=== PATIENT | male | born 1980 | race Two or more races ===

== ENCOUNTER → 2019-01-22 | Outpatient (CLI) | payer BC ==
[2019-01-22 16:56] LABS: ABSOLUTE EOSINOPHILS # (AUTO) 0.1 10^3/uL (0.0-0.6); ABSOLUTE LYMPHOCYTES (AUTO) 2.1 10^3/uL (0.5-4.7); ABSOLUTE MONOCYTES (AUTO) 0.6 10^3/uL (0.1-1.4); ABSOLUTE NEUT (AUTO) 4.8 10^3/uL (1.7-8.2); BASOPHILS % (AUTO) 0.5 % (0-2); EOSINOPHILS % (AUTO) 0.9 % (0-6); HEMATOCRIT 49.6 % (37.9-51.0); HEMOGLOBIN 17.3 g/dL (13.5-17.0); MEAN CORPUSCULAR HEMOGLOBIN 29.6 pg (27.0-33.4); MEAN CORPUSCULAR VOLUME 85 fl (80-97); MONOCYTES % (AUTO) 7.6 % (3-13); PLATELET COUNT 295 10^3/uL (150-450); RED BLOOD COUNT 5.85 10^6/uL (4.35-5.55); TOTAL CELLS COUNTED % (AUTO) 100 %; WHITE BLOOD COUNT 7.6 10^3/uL (4.0-10.5)
[2019-01-22 17:17] LABS: ANION GAP 13 (5-19); BLOOD UREA NITROGEN 14 mg/dL (7-20); CALCIUM 10.1 mg/dL (8.4-10.2); CARBON DIOXIDE 28 mmol/L (22-30); CHLORIDE 98 mmol/L (98-107); GLUCOSE 87 mg/dL (75-110); POTASSIUM 4.1 mmol/L (3.6-5.0); SODIUM 138.6 mmol/L (137-145)
== END ==
LOC: OD 16:19
PROVIDERS: ATTEND Internal Medicine
DX: D64.9 Anemia, unspecified (principal); N19 Unspecified kidney failure; R07.9 Chest pain, unspecified
CPT/HCPCS: 36415; 80048; 84484; 85025

== ENCOUNTER → 2019-02-09 | Outpatient (CLI) | payer BC | LOC: OD 12:11 | PROVIDERS: ATTEND Internal Medicine | DX: E03.9 Hypothyroidism, unspecified (principal); E11.9 Type 2 diabetes mellitus without complications; E29.1 Testicular hypofunction | CPT/HCPCS: 36415; 83036; 84403; 84443 ==

== ENCOUNTER 2019-06-08 12:15 | Day surgery (SDC) | payer BC, OTHER ==
[2019-06-01 09:50] LABS: ABSOLUTE EOSINOPHILS # (AUTO) 0.1 10^3/uL (0.0-0.6); ABSOLUTE LYMPHOCYTES (AUTO) 1.7 10^3/uL (0.5-4.7); ABSOLUTE MONOCYTES (AUTO) 0.4 10^3/uL (0.1-1.4); ABSOLUTE NEUT (AUTO) 3.5 10^3/uL (1.7-8.2); BASOPHILS % (AUTO) 0.5 % (0-2); HEMATOCRIT 45.6 % (37.9-51.0); HEMOGLOBIN 15.7 g/dL (13.5-17.0); LYMPHOCYTES % (AUTO) 29.1 % (13-45); MEAN CORPUSCULAR HEMOGLOBIN 29.3 pg (27.0-33.4); MEAN CORPUSCULAR HGB CONC 34.3 g/dL (32.0-36.0); MEAN CORPUSCULAR VOLUME 85 fl (80-97); MONOCYTES % (AUTO) 7.4 % (3-13); PLATELET COUNT 245 10^3/uL (150-450); RED BLOOD COUNT 5.35 10^6/uL (4.35-5.55); TOTAL CELLS COUNTED % (AUTO) 100 %; WHITE BLOOD COUNT 5.8 10^3/uL (4.0-10.5)
[2019-06-01 10:16] LABS: ANION GAP 12 (5-19); BLOOD UREA NITROGEN 13 mg/dL (7-20); CALCIUM 9.4 mg/dL (8.4-10.2); CARBON DIOXIDE 26 mmol/L (22-30); CHLORIDE 104 mmol/L (98-107); GLUCOSE 90 mg/dL (75-110); POTASSIUM 4.7 mmol/L (3.6-5.0)
--- NOTE | 2019-06-01 10:21 | EKG REPORT ---
SEVERITY:- NORMAL ECG - SINUS RHYTHM : Confirmed by: Teddy Cowart MD 01-Jun-2019 10:21:12
--- NOTE | 2019-06-01 12:11 | RADIOLOGY REPORT (SQ) ---
EXAM DESCRIPTION: CHEST PA/LATERAL COMPLETED DATE/TIME: 06/01/2019 9:34 am REASON FOR STUDY: PRE-OP COMPARISON: 09/19/2014 EXAM PARAMETERS: NUMBER OF VIEWS: two views TECHNIQUE: Digital Frontal and Lateral radiographic views of the chest acquired. RADIATION DOSE: NA LIMITATIONS: none FINDINGS: LUNGS AND PLEURA: No opacities, masses or pneumothorax. No pleural effusion. MEDIASTINUM AND HILAR STRUCTURES: No masses or contour abnormalities. HEART AND VASCULAR STRUCTURES: Heart normal size. No evidence for failure. BONES: No acute findings. HARDWARE: None in the chest. OTHER: No other significant finding. IMPRESSION: NO SIGNIFICANT RADIOGRAPHIC FINDING IN THE CHEST. TECHNICAL DOCUMENTATION: JOB ID: [id number] [employer]- All Rights Reserved Reading location - IP/workstation name: [email or web address]
[~2019-06-08 12:15] MED LIST: CLINDAMYCIN 600 MG/D5W RTU 600 MG/50 ML RTUPB IV PRN; LACTATED RINGERS 1000 ML IV PRN; LIDOCAINE 0.5% INJ-PF (5 MG/ML) 50 ML SDV SUBCUT PRN
[2019-06-08] MEDS ORDERED: CLINDAMYCIN 600 MG/D5W RTU 600 MG/50 ML RTUPB IV ONE (12:36)
[2019-06-08] MEDS ORDERED: BUPIVACAINE HCL 0.5 % INJ/PF 30 ML SDV ONE (14:13)
[2019-06-08] MEDS ORDERED: LIDOCAINE 1%/EPINEPHRINE INJ 20 ML VIAL ONE ×2 (14:14→16:14)
[2019-06-08 14:15] LABS: APPEARANCE,URINE CLEAR; BILIRUBIN,URINE NEGATIVE (NEGATIVE); COLOR,URINE YELLOW; GLUCOSE, URINE NEGATIVE (NEGATIVE); KETONES,URINE NEGATIVE (NEGATIVE); LEUKOCYTE ESTERASE,URINE NEGATIVE (NEGATIVE); NITRITE,URINE NEGATIVE (NEGATIVE); PROTEIN,URINE NEGATIVE (NEGATIVE); URINE SPECIFIC GRAVITY 1.014; UROBILINOGEN,URINE NEGATIVE mg/dL (<2.0)
[2019-06-08] MEDS ORDERED: MEPERIDINE HCL/PF INJ 25 MG/1 ML DISP.SYRIN IV PRN (15:31)
[2019-06-08] MEDS ORDERED: MORPHINE SULFATE 10 MG/ML INJ IV PRN (15:31)
[2019-06-08] MEDS ORDERED: DIPHENHYDRAMINE HCL 50 MG/ML VIAL IV PRN (15:31)
[2019-06-08] MEDS ORDERED: FENTANYL CITRATE INJ/PF 100 MCG/2 ML AMPUL IV PRN ×3 (15:31)
[2019-06-08] MEDS ORDERED: PROMETHAZINE HCL INJ 25 MG/1 ML VIAL IV PRN ×2 (15:31)
[2019-06-08] MEDS ORDERED: FENTANYL CITRATE INJ/PF 100 MCG/2 ML AMPUL ONE (15:36)
[2019-06-08] MEDS ORDERED: PROPOFOL INJ 200 MG/20 ML VIAL IV ONE (15:37)
[2019-06-08] MEDS ORDERED: ONDANSETRON HCL INJ/PF 4 MG/2 ML SDV ONE (15:37)
[2019-06-08] MEDS ORDERED: MIDAZOLAM 2 MG/2 ML INJ ONE (15:37)
[2019-06-08] MEDS ORDERED: DEXAMETHASONE SOD PHOSPHATE INJ 4 MG/1 ML VIAL ONE (15:37)
[2019-06-08] MEDS ORDERED: LIDOCAINE 0.5% INJ-PF (5 MG/ML) 50 ML SDV ONE (15:40)
[2019-06-08] MEDS ORDERED: KETAMINE HCL INJ 500 MG/10 ML VIAL ONE (15:56)
[2019-06-08] MEDS ORDERED: LIDOCAINE 1% INJ-PF (10 MG/ML) 30 ML SDV ONE (16:14)
--- NOTE | 2019-06-08 16:28 | Operative Report ---
Operative Report DATE OF SURGERY: 06/08/19 PREOPERATIVE DIAGNOSIS: Right medial meniscal tear POSTOPERATIVE DIAGNOSIS: Right medial meniscal tear. 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 Intact ACL. Loose body in the intercondylar notch. Lateral meniscal tear OPERATION: Arthroscopic right partial medial and lateral meniscectomy, retrieval of loose body SURGEON: FÁTIMA BOJORQUEZ ANESTHESIA: LMAC TISSUE REMOVED OR ALTERED: Loose body to pathology ESTIMATED BLOOD LOSS: Minimal PROCEDURE: With the patient supine on the operating room table the right lower extremities prepped and draped in sterile fashion. The knee is insufflated with accommodation Marcaine, Xylocaine, and epinephrine through medial and lateral infrapatellar portals. Portals are created for the introduction of arthroscope and debridements mentation. Joint is examined in systematic fashion. Findings as above. The loose bodies removed using a grabber and then the soft tissue bed at the base of the ACL is smooth using mechanical shaver. A partial lateral meniscectomy was performed from proximally 6:00 to 10:00 on the face of the dial using combination of basket Lowe, mechanical shaver, electric frequency ablation probe. Similarly a partial medial meniscectomy was performed from proximally 4:00 to 12:00 on the face of the dial using a rondure, mechanical shaver, and electric frequency ablation probe. The joint is examined again examined in systematic fashion with no new findings. Instrumentation was removed. Portals reapproximated interrupted nylon. A sterile compressive dressing was applied. The patient return to PACU in satisfactory condition.
--- NOTE | 2019-06-08 16:30 | Discharge Summary ---
Discharge Summary (SDC) - Discharge Final Diagnosis: Right medial meniscal tear Date of Surgery: 06/08/19 Discharge Date: 06/08/19 Condition: Good Treatment or Instructions: Remove compressive wrap on Saturday. Underlying OpSite can remain in place until you return to the office. Once the compressive wrap is removed you may shower but do not immerse the extremity in a pool or a tub bath. Prescriptions: Oxycodone HCl/Acetaminophen [Percocet 5-325 mg Tablet] 1 tab PO Q6 PRN #25 tab PRN Reason: Referrals: MEG DOSS MD [Primary Care Provider] - Discharge Diet: Regular Respiratory Treatments at Home: Deep Breathing/Coughing Discharge Activity: Balance Activity w/Rest, No tub bath Home Care Assistance: None Needed Report the Following to Your Physician Immediately: Shortness of Breath, Fever over 101 Degrees, Drainage-Foul Smelling
[2019-06-08] MEDS ORDERED: ONDANSETRON 4 MG TAB.RAPDIS ONE (18:59)
[2019-06-08 20:42] VITALS: BP 126/77
== END 2019-06-08 19:35 | disposition home or self-care (01) ==
LOC: OROUT 12:15
PROVIDERS: ATTEND Orthopaedic Surgery
DX: M23.300 Other meniscus derangements, unspecified lateral meniscus, right knee (principal); M23.303 Other meniscus derangements, unspecified medial meniscus, right knee; M22.41 Chondromalacia patellae, right knee; M23.41 Loose body in knee, right knee; M25.561 Pain in right knee; Z79.899 Other long term (current) drug therapy; I10 Essential (primary) hypertension
CPT/HCPCS: 29880; G0289; 36415; 71046; 80048; 81001; 84132; 85025; 88305; 93005; 93010; J1100; J2250; J2405; J2704; J3010; J3490; S0119

== ENCOUNTER 2019-10-05 18:39 | Emergency (ER) | payer OTHER, BC ==
--- NOTE | 2019-10-05 19:30 | ER Document Report ---
HPI - HPI Time Seen by Provider: 10/05/19 18:46 Pain Level: 3 Context: Patient is a 39-year-old male presents emergency department with a chief complaint of fall. Patient reports prior to arrival he was [place] a gun range when he slipped and fell down a slope. Patient reports he did the splits and landed on his right knee. Patient complains of bilateral knee pain and left hip pain. Patient reports he has had 2 meniscus surgeries on his right knee with the last one being in April 2019. Patient denies head injury or loss of consciousness. Patient reports he was wearing a right knee brace at the time of the fall, he states that he immediately took it off as he developed swelling to the right knee. Past Medical History - Social History Smoking Status: Never Smoker Lives with: Family, Spouse/Significant other Family History: Hypertension, Other - cardiac arrhythmias Patient has suicidal ideation: No Patient has homicidal ideation: No - Past Medical History Cardiac Medical History: Reports: Hx Hypertension Denies: Hx Coronary Artery Disease, Hx Heart Attack Pulmonary Medical History: Reports: Hx Bronchitis, Hx Pneumonia Denies: Hx Asthma, Hx COPD EENT Medical History: Reports: None Neurological Medical History: Reports: None. Denies: Hx Cerebrovascular Accident, Hx Seizures Endocrine Medical History: Reports: None Renal/ Medical History: Reports: None Malignancy Medical History: Reports None GI Medical History: Reports: None Musculoskeletal Medical History: Reports Hx Arthritis - BILAT KNEES Skin Medical History: Reports None Psychiatric Medical History: Reports: None Traumatic Medical History: Reports: None Infectious Medical History: Reports: None Past Surgical History: Reports: Hx Cholecystectomy - Immunizations Hx Diphtheria, Pertussis, Tetanus Vaccination: Yes Vertical Provider Document - CONSTITUTIONAL Agree With Documented VS: Yes Exam Limitations: No Limitations General Appearance: No Apparent Distress - INFECTION CONTROL TRAVEL OUTSIDE OF THE [place] IN LAST 30 DAYS: No - HEENT HEENT: Atraumatic, Normal ENT Exam, Normocephalic, PERRLA - NECK Neck: Normal Inspection - RESPIRATORY Respiratory: Breath Sounds Normal, No Respiratory Distress - CARDIOVASCULAR Cardiovascular: Regular Rate, Regular Rhythm - GI/ABDOMEN Gastrointestinal: Abdomen Soft, Abdomen Non-Tender, Normal Bowel Sounds - BACK Back: Normal Inspection Notes: There is no cervical, thoracic or lumbar midline tenderness with palpation. - MUSCULOSKELETAL/EXTREMETIES Notes: Patient has right medial and lateral knee pain with palpation. There is some edema. No ecchymosis. No tenderness to the patella. Patient has a +2 poplitea l, dorsalis pedis and posterior tibial pulse. Patient has left lateral knee pain with palpation. There is mild edema. No ecchymosis or erythema. No tenderness to the patella. Patient has a +2 pop liteal, dorsalis pedis and posterior tibial pulse. Patient is able to ambulate but walks with a limp due to bilateral knee pain and left hip pain. Patient has tenderness to the left iliac crest. There is no ecchymosis, edema or significant swelling noted to the left hip. - NEURO Level of Consciousness: Awake, Alert, Appropriate - DERM Integumentary: Warm, Dry, No Rash Course - Re-evaluation Re-evalutation: 10/05/19 19:53 Did offer the patient pain medication. States he would like either Tylenol or ibuprofen. Will obtain x-rays of bilateral knees and left hip. 10/05/19 21:16 Patient's x-rays were negative. I did inform the patient ultimately may have a tendon or ligament injury especially to the right knee cyst is worse most of his pain is. We will place the patient in a knee immobilizing splint and crutches. Patient is to take 1 week off of work and to follow-up with orthopedics. He reports Dr. Bojorquez did perform his last 2 knee surgeries. I have referred him to Dr. Bojorquez. - Diagnostic Test Radiology reviewed: Reports reviewed Radiology results interpreted by me: 10/05/19 20:59 Hip X-Ray 10/05/19 19:50 IMPRESSION: No acute process Knee X-Ray 10/05/19 19:50 IMPRESSION: No fracture. Discharge - Discharge Clinical Impression: Left hip pain Bilateral knee pain Qualifiers: Chronicity: acute Qualified Code(s): M25.561 - Pain in right knee Condition: Stable Disposition: HOME, SELF-CARE Additional Instructions: *Today was in the emergency department after a fall. *We did obtain x-rays of your left hip and bilateral knees. Unfortunately x- rays only show bones such as a fracture dislocation. This was negative. Ultimately do need to follow-up with orthopedics, I would follow with Dr. Bojorquez if possible as he has performed your right knee surgery in the past. I am placing you in a knee immobilizing splint. Please wear this over the next week. Please remove this multiple times per day. Please make sure you are resting, elevating, icing and using the crutches. Take the ibuprofen as needed for pain. Knee Immobilizing Splint The knee immobilizing splint will protect the injury while healing begins. This type of splint does not allow the knee to bend at all. No running or sports will be possible. If the splint allows painfree walking, it's giving adequate protection. If there is still significant pain, crutches may be needed as well. Don't do anything that hurts. Adjusted the splint, if necessary. The stiffeners on the sides are attached with Velcro, so they can be easily moved to adjust for thigh and calf size. If you need help with these adjustments, come back. You will lose muscle strength in the thigh while using this splint. The doctor will advise you if it's safe to do isometric knee exercises while you use it. Prescriptions: Ibuprofen [Motrin 800 mg Tablet] 800 mg PO Q8H PRN #30 tab PRN Reason: Forms: Return to Work Referrals: FÁTIMA BOJORQUEZ MD [ACTIVE STAFF] - Follow up as needed
[2019-10-05] MEDS ORDERED: ACETAMINOPHEN 325 MG TABLET PO ONE (19:50)
[2019-10-05] MEDS ORDERED: IBUPROFEN 800 MG TABLET PO ONE (19:53)
--- NOTE | 2019-10-05 20:50 | RADIOLOGY REPORT (SQ) ---
EXAM DESCRIPTION: Pelvis and left hip CLINICAL HISTORY: 39 years Male, fall COMPARISON: None. FINDINGS: Hips are located bilaterally. The pelvic ring is intact. No fracture is seen. SI joints and sacrum are unremarkable. In the left hip the joint spaces preserved and there is no significant osteophyte formation. No fracture. IMPRESSION: No acute process
--- NOTE | 2019-10-05 20:52 | RADIOLOGY REPORT (SQ) ---
XR KNEE 1-2 VIEWS BILATERAL CLINICAL STATEMENT: fall COMPARISON: None FINDINGS: Bony alignment is anatomic. There is no fracture or dislocation. The soft tissues are unremarkable. No significant suprapatellar joint effusion. Minimal bilateral lateral tibiofemoral compartment degenerative changes. IMPRESSION: No fracture.
[2019-10-05 21:32] VITALS: BP 138/89
== END 2019-10-05 21:30 | disposition home or self-care (01) ==
LOC: ER 18:39
DX: M25.561 Pain in right knee (principal); M25.562 Pain in left knee; M25.552 Pain in left hip; W01.0XXA Fall on same level from slipping, tripping and stumbling without subsequent striking against object, initial encounter; Y99.0 Civilian activity done for income or pay; I10 Essential (primary) hypertension; Z90.49 Acquired absence of other specified parts of digestive tract
CPT/HCPCS: 99283